=== PATIENT | male | born 1975 | race Caucasian/White ===

== ENCOUNTER 2019-12-11 22:02 | Emergency (ER) | payer MEDICARE, MEDICAID, OTHER ==
[~2019-12-11] VITALS: Ht 180.3 cm; Wt 80.0 kg
[2019-12-11] MEDS ORDERED: LORazepam 2 MG/ML, 1ML IM ONE (22:30)
[2019-12-11] MEDS ORDERED: DIPHENHYDRAMINE 50 MG/ML, 1ML IM ONE (22:30)
[2019-12-11] MEDS ORDERED: HALOPERIDOL 5 MG/ML IM PRN (22:30)
[2019-12-11] MEDS ORDERED: LORazepam 1MG TABLET ONE (22:46)
[2019-12-11 22:57] LABS: ALBUMIN 3.5 g/dL (3.4-5.0); ANION GAP 9 mmol/L (5-15); CHLORIDE 108 mmol/L (98-107); CREATININE 1.13 mg/dL (0.7-1.3)
[2019-12-11] MEDS ORDERED: LORazepam 1MG TABLET PO ONE (23:00)
[2019-12-11 23:31] LABS: BASOPHILS # (AUTO) 0.05 x10^3/uL (0-0.1); BASOPHILS % (AUTO) 1 % (0-1); EOSINOPHILS % (AUTO) 1 % (1-7); LYMPHOCYTES # (AUTO) 0.58 x10^3/uL (1-3.4); LYMPHOCYTES % (AUTO) 7 % (22-44); MD NO; MEAN CORPUSCULAR HEMOGLOBIN 26.2 pg (27.5-34.5); MEAN CORPUSCULAR HGB CONC 32.3 g/dL (33.2-36.2); MONOCYTES # (AUTO) 0.35 x10^3/uL (0.2-0.8); MONOCYTES % (AUTO) 4 % (2-9); NEUTROPHILS % (AUTO) 87 % (42-75); PLATELET COUNT 319 x10^3/uL (130-400); RED BLOOD COUNT 4.66 x10^6/uL (4.38-5.82); RED CELL DISTRIBUTION WIDTH 20.8 % (9.4-14.8)
--- NOTE | 2019-12-11 23:55 | NUR ---
PT SLEEPING IN BED, LAW ENFORCEMENT REMAINS AT BEDSIDE. CALL LIGHT IN REACH.
[2019-12-12 00:10] VITALS: BP 103/65
== END 2019-12-12 00:37 | disposition home or self-care (01) ==
LOC: ED 12-12 00:26
DX: S60.211A Contusion of right wrist, initial encounter (principal); S60.221A Contusion of right hand, initial encounter; S00.83XA Contusion of other part of head, initial encounter; S09.90XA Unspecified injury of head, initial encounter; M54.2 Cervicalgia; F41.9 Anxiety disorder, unspecified; E11.9 Type 2 diabetes mellitus without complications; X58.XXXA Exposure to other specified factors, initial encounter; Y93.89 Activity, other specified; Y92.89 Other specified places as the place of occurrence of the external cause; Y99.8 Other external cause status
CPT/HCPCS: 36415; 70450; 72125; 74176; 80048; 82040; 85025; 99285